=== PATIENT | male | born 1965 | race Two or more races ===

== ENCOUNTER 2019-08-23 12:54 | Emergency (ER) | payer BC ==
[2019-08-23] MEDS ORDERED: DIPHENHYDRAMINE HCL 50 MG/ML VIAL IV ONE (13:13)
[2019-08-23] MEDS ORDERED: FAMOTIDINE INJ/PF 20 MG/2 ML SDV IV ONE (13:13)
[2019-08-23] MEDS ORDERED: METHYLPREDNISOLONE INJ 125 MG/2 ML SDV IV ONE (13:13)
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
[2019-08-23] MEDS ORDERED: TETRACAINE HCL 0.5% OPH SOLN 4 ML OU ONE (13:28)
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
[2019-08-23] MEDS ORDERED: ERYTHROMYCIN 0.5% OPH OINTMENT 3.5 GM (ER DISP) OU ONE (14:40)
[2019-08-23 15:00] VITALS: BP 126/97
== END 2019-08-23 15:00 | disposition home or self-care (01) ==
LOC: ER 12:54
DX: Z77.098 Contact with and (suspected) exposure to other hazardous, chiefly nonmedicinal, chemicals (principal); T15.92XA Foreign body on external eye, part unspecified, left eye, initial encounter; T15.91XA Foreign body on external eye, part unspecified, right eye, initial encounter; T78.40XA Allergy, unspecified, initial encounter; R22.0 Localized swelling, mass and lump, head; X58.XXXA Exposure to other specified factors, initial encounter; E11.9 Type 2 diabetes mellitus without complications; Z79.84 Long term (current) use of oral hypoglycemic drugs
CPT/HCPCS: 99283; 96374; 96375; J1200; J2930; S0028; J3490

== ENCOUNTER 2019-08-25 07:43 | Emergency (ER) | payer BC ==
[2019-08-25] MEDS ORDERED: PREDNISONE 20 MG TABLET PO ONE (09:46)
[2019-08-25 10:30] VITALS: BP 133/89
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
== END 2019-08-25 11:07 | disposition home or self-care (01) ==
LOC: ER 07:43
DX: H10.213 Acute toxic conjunctivitis, bilateral (principal); T78.40XA Allergy, unspecified, initial encounter; X58.XXXA Exposure to other specified factors, initial encounter; I10 Essential (primary) hypertension; E11.9 Type 2 diabetes mellitus without complications
CPT/HCPCS: 99283; J7512